=== PATIENT | male | born 1955 | race Caucasian/White ===

== ENCOUNTER 2019-02-22 01:12 | Observation (INO) | payer OTHER ==
[2019-02-22] MEDS ORDERED: NS 1,000 ML IV ONE (01:21)
[2019-02-22 01:41] LABS: PLATELET COUNT 206 10^3/uL (150-400)
--- NOTE | 2019-02-22 01:50 | EDPHY ---
H & P Stated Complaint: mid chest tightness started at 2300 Time Seen by Provider: 02/22/19 01:49 HPI/ROS: HPI CHIEF COMPLAINT: Chest pain. HISTORY OF PRESENT ILLNESS: Patient is a 63-year-old male, he presents emergency room with chest pain. The patient reports to me that he developed this around 11:00 p.m. Night when he was trying to go to sleep. Substernal. He describes it as an achy pain. Does not radiate. He does state that he can' t take a deep breath and has a gives worsening pain. He reports to me on Thursday night he became sick with nausea vomiting vomited multiple times throughout Thursday night and complain of generalized weakness throughout Thursday but did not have chest pain. States he developed chest pain around 11: 00 p.m. Tonight. Also complains of some shortness of breath. He has no history of this he denies a history of DVT or PE or cardiac disease. Nonproductive cough. Also complains of subjective fever. Past Medical History: Medical history significant for hypertension, hyperlipidemia Past Surgical History: Tonsillectomy. Social History: Denies drugs alcohol tobacco. Family History: Hypertension and hyperlipidemia ROS REVIEW OF SYSTEMS: 10 Systems were reviewed and negative with the exception of the elements mentioned in the history of present illness. Exam Constitutional triage nursing summary reviewed, vital signs reviewed, awake/ alert. Eyes normal conjunctivae and sclera, EOMI, PERRLA. HENT normal inspection, atraumatic, moist mucus membranes, no epistaxis, neck supple/ no meningismus, no raccoon eyes. Respiratory clear to auscultation bilaterally, normal breath sounds, no respiratory distress, no wheezing. Cardiovascular rate normal, regular rhythm, no murmur, no edema, distal pulses normal. Gastrointestinal mild RUQ pain on exam, no rebound, no guarding, normal bowel sounds, no distension, no pulsatile mass. Genitourinary no CVA tenderness. Musculoskeletal no midline vertebral tenderness, full range of motion, no calf swelling, no tenderness of extremities, no meningismus, good pulses, neurovascularly intact. Skin pink, warm, & dry, no rash, skin atraumatic. Neurologic awake, alert and oriented x 3, AAOx3, moves all 4 extremities equally, motor intact, sensory intact, CN II-XII intact, normal cerebellar, normal vision, normal speech. Psychiatric normal mood/affect. Heme/Lymph/Immune no lymphadenopathy. Differential Diagnosis: Differential diagnosis includes but is not limited to: ACS, atypical chest pain, pneumothorax, pneumonia, pulmonary embolism, aortic dissection, congestive heart failure, tumor, musculoskeletal pain, esophageal pain, GERD, peptic ulcer disease, pancreatitis Medical Decision Making: Plan for this patient IV establishment IV fluid bolus , nitroglycerin and aspirin, family caseworker, EKG, troponin, D-dimer, chest x- ray rule out acute coronary syndrome Re-evaluation: EKG interpretation by me on record in [employer] system. Impression time of EKG 1:32 a.m., sinus rhythm rate of 71, PVC present, left axis deviation, no acute ST elevation. Ultrasound of the right upper quadrant faxed me by direct Radiology at 2:59 a.m. Shows acute cholecystitis. IV Invanz ordered. 3:07 a.[address] I consult Dr. Woods for admission for acute choly. Patient updated agrees for admission. IV pain medicine ordered. NPO Dr. Woods and has seen evaluated the patient requesting admission to the hospitalist service due to low potassium, elevated BNP. Plan for consult the hospitalist service Chest x-ray one view negative for acute cardiopulmonary disease. Image interpreted by myself. No evidence of failure. Dr. Woods, will consult on patient. Most likely plan for MRCP. Iv invanz ordered. NPO. Pain control/ivfluids. Admit to medicine, Surgery consult. Source: Patient - Personal History Current Tetanus/Diphtheria Vaccine: Yes Current Tetanus Diphtheria and Acellular Pertussis (TDAP): Yes - Medical/Surgical History Hx Asthma: No Hx Chronic Respiratory Disease: No Hx Diabetes: No Hx Cardiac Disease: No Hx Renal Disease: No Hx Cirrhosis: No Hx Alcoholism: No Hx HIV/AIDS: No Hx Splenectomy or Spleen Trauma: No Other PMH: HTN, - Social History Smoking Status: Never smoked Constitutional: Initial Vital Signs Temperature (C) 36.6 C 02/22/19 01:13 Heart Rate 77 02/22/19 01:13 Respiratory Rate 16 02/22/19 01:13 Blood Pressure 132/73 H 02/22/19 01:13 O2 Sat (%) 97 02/22/19 01:13 O2 Delivery Mode Room Air Allergies/Adverse Reactions: No Known Allergies Allergy (Verified 02/22/19 08:58) Home Medications: Medication Instructions Recorded Atorvastatin Calcium [Lipitor 20 20 mg PO DAILY 02/22/19 mg (*)] Lisinopril/Hctz 20/12.5MG 1 ea PO DAILY 02/22/19 [Zestoretic/Prinzide 20/12.5MG (*)] Propranolol HCl [Inderal 20mg (*)] 20 mg PO DAILY 02/22/19 Medical Decision Making - Data Points Laboratory Results: Laboratory Results 02/22/19 01:29 02/22/19 01:29 Medications Given: Acetaminophen (Tylenol) 650 mg PO Q4HRS PRN PRN Reason: Pain, Mild/Fever, Can Take PO Stop: 08/21/19 03:29 Last Admin: 02/22/19 07:29 Dose: 650 mg Ceftriaxone Sodium/Dextrose (Rocephin 1 Gm (Premix)) 50 mls @ 100 mls/hr IV DAILY PANFILO PRN Reason: Protocol Stop: 03/24/19 08:59 Last Admin: 02/22/19 09:15 Dose: 50 mls Metronidazole/Sodium Chloride (Flagyl 500 Mg (Premix)) 100 mls @ 100 mls/hr IV Q8HRS PANFILO PRN Reason: Protocol Stop: 03/24/19 05:59 Last Admin: 02/22/19 14:17 Dose: 100 mls Potassium Chloride 40 meq/ (Sodium Chloride) 1,000 mls @ 100 mls/hr IV CONT PANFILO Stop: 08/21/19 03:59 Last Admin: 02/22/19 18:04 Dose: 1,000 mls Oxycodone HCl (Oxycodone Ir) 5 - 10 mg PO Q3HRS PRN PRN Reason: Pain, Severe Able to Take PO Stop: 03/04/19 03:29 Last Admin: 02/22/19 05:22 Dose: 10 mg Discontinued Medications Aspirin (Aspirin) 324 mg PO EDNOW ONE Stop: 02/22/19 01:55 Last Admin: 02/22/19 02:04 Dose: 324 mg Bupivacaine HCl/Epinephrine Bitart (Bupivacaine/Epi) Confirm Administered Dose 30 ml .ROUTE .STK-MED ONE Stop: 02/22/19 14:18 Last Admin: 02/22/19 15:48 Dose: 25 ml Hydromorphone HCl (Dilaudid) 0.5 mg IVP EDNOW ONE Stop: 02/22/19 03:09 Last Admin: 02/22/19 03:47 Dose: 0.5 mg Sodium Chloride (Ns) 1,000 mls @ 0 mls/hr IV EDNOW ONE; Wide Open PRN Reason: Protocol Stop: 02/22/19 01:22 Last Admin: 02/22/19 01:54 Dose: 1,000 mls Potassium Chloride (Potassium Cl 20 Meq (Premix)) 100 mls @ 50 mls/hr IV EDNOW ONE Stop: 02/22/19 04:03 Last Admin: 02/22/19 02:30 Dose: 100 mls Ertapenem 1 gm/ Sodium (Chloride) 100 mls @ 200 mls/hr IV EDNOW ONE PRN Reason: Protocol Stop: 02/22/19 03:30 Last Admin: 02/22/19 04:06 Dose: 100 mls Potassium Chloride (Potassium Cl 10 Meq (Premix)) 100 mls @ 100 mls/hr IV Q1H PANFILO Stop: 02/22/19 05:29 Last Admin: 02/22/19 03:50 Dose: 100 mls Magnesium Sulfate/Dextrose (Magnesium Sulf 1 Gm (Premix)) 100 mls @ 100 mls/hr IV ONCE ONE Stop: 02/22/19 05:01 Last Admin: 02/22/19 05:13 Dose: 100 mls Lactated Ringer's (Lr) 1,000 mls @ 0 mls/hr IV ONCE ONE PRN Reason: KVO Stop: 02/22/19 14:13 Last Admin: 02/22/19 17:33 Dose: Not Given Iopamidol (Isovue-M 300) Confirm Administered Dose 15 ml .ROUTE .STK-MED ONE Stop: 02/22/19 14:19 Last Admin: 02/22/19 17:33 Dose: Not Given Midazolam HCl (Versed) 2 mg IVP ONCALL ONE Stop: 02/22/19 14:55 Last Admin: 02/22/19 15:03 Dose: 2 mg Nitroglycerin (Nitrostat) 0.4 mg SL EDNOW ONE Stop: 02/22/19 01:55 Last Admin: 02/22/19 02:05 Dose: 1 tab Ondansetron HCl (Zofran) 4 mg IVP EDNOW ONE Stop: 02/22/19 03:09 Last Admin: 02/22/19 07:13 Dose: Not Given Point of Care Test Results: Chemistry 02/22/19 01:33 POC Troponin I 0.03 ng/mL ng/mL (0.00-0.08) Departure - Departure Disposition: [facility] Inpatient Acute Clinical Impression: Acute cholecystitis, Hypokalemia Condition: Serious
[2019-02-22 01:53] LABS: INR 1.11 (0.83-1.16); PROTIME(PATIENT) 13.9 SEC (12.0-15.0)
[2019-02-22] MEDS ORDERED: ASPIRIN 81 MG CHEWABLE TAB PO ONE (01:54)
[2019-02-22] MEDS ORDERED: NITROGLYCERIN 0.4 MG BTL SL ONE (01:54)
[2019-02-22] MEDS ORDERED: POTASSIUM Cl (KCl) 100 ML IV ONE (02:04)
[2019-02-22] MEDS ORDERED: POTASSIUM Cl (KCl) 10 MEQ/100 ML BAG IV ONE (02:18)
[2019-02-22] MEDS: POTASSIUM Cl (KCl) 100 ML IV SCH ×2 (02:45→03:50)
[2019-02-22] MEDS ORDERED: ERTAPENEM 1 GM in NS 100 ML IV ONE (03:01)
[2019-02-22] MEDS ORDERED: ONDANSETRON 4 MG/2 ML VIAL IVP ONE (03:08)
[2019-02-22] MEDS ORDERED: HYDROmorphONE/DILAUDID 2 MG/ML INJ IVP ONE (03:08)
[2019-02-22] MEDS ORDERED: PROMETHAZINE HCL 25 MG/ML INJ IVP PRN ×2 (03:30→16:02)
[2019-02-22] MEDS ORDERED: ONDANSETRON DISINTEGRATING 4 MG TAB PO PRN (03:30)
[2019-02-22] MEDS ORDERED: oxyCODONE IR 5 MG TAB PO PRN (03:30)
[2019-02-22] MEDS ORDERED: ONDANSETRON 4 MG/2 ML VIAL IVP PRN ×2 (03:30→16:02)
[2019-02-22] MEDS ORDERED: ACETAMINOPHEN 325 MG TAB PO PRN (03:30)
[2019-02-22] MEDS ORDERED: HYDROmorphONE/DILAUDID 1 MG/ML INJ IVP PRN (03:46)
--- NOTE | 2019-02-22 03:52 | PDGENHP ---
History and Physical - Chief Complaint RUQ pain - History of Present Illness 63 yo M w/ hx of HTN presents with RUQ pain. The patient has been symptomatic for the last 3 days. He first developed vomiting and subjective fever. Then he developed progressive RUQ pain over the last 3 days so he came to the ED for evaluation. In the ED an ultrasound is consistent with acute cholecystitis. It also demonstrates dilated CBD. His K is low, BNP elevated, and ECG w/ numerous PVCs. At the time of my evaluation he is only complaining of RUQ pain. He is fairly well appearing. He denies prior cardiac history aside from HTN. I discussed the case with emergency physician Dr. Boykin and general surgery Dr. Woods; I reviewed his records and summarized above. History Information - Allergies/Home Medication List Allergies/Adverse Reactions: No Known Allergies Allergy (Unverified 02/22/19 01:16) Home Medications: Bp Medication 02/22/19 [Last Taken Unknown] Lipitor 02/22/19 [Last Taken Unknown] Lisinopril/Hydrochlorothiazide 02/22/19 [Last Taken Unknown] I have personally reviewed and updated: family history, medical history - Past Medical History hypertension - Surgical History Additional surgical history: Knee surgery - Family History Positive for: diabetes type II Additional family history: MS - Social History Smoking Status: Never smoked Review of Systems Review of Systems: ROS: 10pt was reviewed & negative except for what was stated in HPI & below Physical Exam Physical Exam: Temp Pulse Resp BP Pulse Ox 36.6 C 77 16 132/73 H 97 02/22/19 01:13 02/22/19 01:13 02/22/19 01:13 02/22/19 01:13 02/22/19 01:13 Constitutional: appears nourished, uncomfortable Eyes: PERRL, EOMI Ears, Nose, Mouth, Throat: moist mucous membranes, no oral mucosal ulcers Cardiovascular: regular rate and rhythym, no murmur, rub, or gallop, other ( Distant heart sounds) Respiratory: no respiratory distress, clear to auscultation Gastrointestinal: normoactive bowel sounds, tenderness (RUQ), peters's sign Skin: warm, normal color Musculoskeletal: full muscle strength, no muscle tenderness Neurologic: AAOx3, CN II-XII Intact Psychiatric: interacting appropriately, not anxious Lab Data & Imaging Review 02/22/19 01:29 02/22/19 01: WBC 15.54 10^3/uL (3.80-9.50) H 02/22/19 01: RBC 5.27 10^6/uL (4.40-6.38) 02/22/19 01:29 Hgb 16.2 g/dL (13.7-17.5) 02/22/19 01:29 Hct 45.1 % (40.0-51.0) 02/22/19 01: MCV 85.6 fL (81.5-99.8) 02/22/19 01: MCH 30.7 pg (27.9-34.1) 02/22/19 01: MCHC 35.9 g/dL (32.4-36.7) 02/22/19 01: RDW 12.6 % (11.5-15.2) 02/22/19 01: Plt Count 206 10^3/uL (150-400) 02/22/19 01: MPV 8.7 fL (8.7-11.7) 02/22/19 01: Neut % (Auto) 82.8 % (39.3-74.2) H 02/22/19 01: Lymph % (Auto) 7.7 % (15.0-45.0) L 02/22/19 01: [place] % (Auto) 8.6 % (4.5-13.0) 02/22/19 01: Eos % (Auto) 0.1 % (0.6-7.6) L 02/22/19 01: Baso % (Auto) 0.4 % (0.3-1.7) 02/22/19 01: Nucleat RBC Rel Count 0.0 % (0.0-0.2) 02/22/19 01: Absolute Neuts (auto) 12.88 10^3/uL (1.70-6.50) H 02/22/19 01:29 Absolute Lymphs (auto) 1.19 10^3/uL (1.00-3.00) 02/22/19 01:29 Absolute Monos (auto) 1.33 10^3/uL (0.30-0.80) H 02/22/19 01:29 Absolute Eos (auto) 0.02 10^3/uL (0.03-0.40) L 02/22/19 01:29 Absolute Basos (auto) 0.06 10^3/uL (0.02-0.10) 02/22/19 01:29 Absolute Nucleated RBC 0.00 10^3/uL (0-0.01) 02/22/19 01: Immature Gran % 0.4 % (0.0-1.1) 02/22/19 01: Immature Gran # 0.06 10^3/uL (0.00-0.10) 02/22/19 01: PT 13.9 SEC (12.0-15.0) 02/22/19 01:29 INR 1.11 (0.83-1.16) 02/22/19 01:29 APTT 32.4 SEC (23.0-38.0) 02/22/19 01:29 D-Dimer 5.33 ug/mLFEU (0.00-0.50) H 02/22/19 01:29 Sodium 136 mEq/L (135-145) 02/22/19 01:29 Potassium 2.6 mEq/L (3.5-5.2) L* 02/22/19 01:29 Chloride 97 mEq/L (97-110) 02/22/19 01:29 Carbon Dioxide 26 mEq/l (22-31) 02/22/19 01:29 Anion Gap 13 mEq/L (6-14) 02/22/19 01:29 BUN 17 mg/dL (7-23) 02/22/19 01:29 Creatinine 1.1 mg/dL (0.7-1.3) 02/22/19 01:29 Estimated GFR > 60 02/22/19 01:29 Glucose 139 mg/dL (70-100) H 02/22/19 01:29 Calcium 9.1 mg/dL (8.5-10.4) 02/22/19 01:29 Magnesium 1.8 mg/dL (1.6-2.3) 02/22/19 01:29 Total Bilirubin 4.2 mg/dL (0.1-1.4) H 02/22/19 01:29 Conjugated Bilirubin 2.2 mg/dL (0.0-0.5) H 02/22/19 01:29 Unconjugated Bilirubin 2.0 mg/dL (0.0-1.1) H 02/22/19 01:29 AST 172 IU/L (17-59) H 02/22/19 01:29 ALT 102 IU/L (21-72) H 02/22/19 01:29 Alkaline Phosphatase 194 IU/L (38-126) H 02/22/19 01:29 POC Troponin I 0.03 ng/mL (0.00-0.08) 02/22/19 01:33 NT-Pro-B Natriuret Pep 1680 pg/mL (0-125) H 02/22/19 01:29 Total Protein 6.4 g/dL (6.3-8.2) 02/22/19 01:29 Albumin 3.7 g/dL (3.5-5.0) 02/22/19 01:29 Lipase 73 IU/L (23-300) 02/22/19 01:29 Nasal Influenza A PCR NEGATIVE FOR FLU A (NEGATIVE) 02/22/19 02:00 Nasal Influenza B PCR NEGATIVE FOR FLU B (NEGATIVE) 02/22/19 02:00 Ethyl Alcohol < 10 mg/dL (0-10) 02/22/19 01:29 Visualized and Interpreted EKG results: Yes EKG Interpretation: Positive for: normal sinsus rhythm, other (PVCs) Assessment & Plan Assessment: 63 yo M w/ HTN presents with acute cholecystitis. Plan: 1. Acute cholecystitis - Ultrasound notable for GB wall thickening and positive Peters's sign. WBC 15 but no evidence of sepsis physiology at this time. - CTX/Metronidazole for empiric intraabdominal coverage - Blood cultures ordered - Discussed case with general surgery, they will follow - Maintain NPO - Pain control 2. Abnormal LFTs - Elevated bilirubin and transaminases consistent with both obstruction and inflammation. RUQ U/S demonstrated dilated CBD at 9 mm. - MRCP ordered for further evaluation - Monitor LFTs - Infectious management as above 3. Elevated BNP - No prior hx of CHF; CXR does demonstrate some vascular congestion and ECG w/ multiple PVCs. - TTE ordered for further evaluation 4. Hypokalemia - Possibly due to vomiting and poor PO intake. - Replete PRN - mIVF w/ K ordered - Monitor BMP - Monitor on telemetry 5. HTN - Hold home meds in setting of acute infection, restart as indicated. Diet - NPO, mIVF w/ K Code - Full Ppx - SCDs Dispo - Admit under observation status
[2019-02-22] MEDS ORDERED: MAGNESIUM SULF 1 GM/DEXTROSE 100 ML IV ONE (04:02)
[2019-02-22] MEDS: POTASSIUM Cl (KCl) 40 MEQ in NS 1,000 ML IV SCH ×2 (05:05→18:04)
--- NOTE | 2019-02-22 07:45 | CPEKG ---
Test Reason : OPEN Blood Pressure : / mmHG Vent. Rate : 071 BPM Atrial Rate : 077 BPM P-R Int : 187 ms QRS Dur : 108 ms QT Int : 394 ms P-R-T Axes : 060 -37 027 degrees QTc Int : 429 ms Sinus rhythm Multiform ventricular premature complexes Left axis deviation Abnormal R-wave progression, early transition Confirmed by Buster Heck ([id number]) on 02/22/2019 7:43:56 AM Referred By: PHYSICIAN ED Confirmed By:Buster Heck
--- NOTE | 2019-02-22 08:28 | SOAPPROG ---
SOAP Progress Note Assessment/Plan: Assessment: 63-year-old male with likely acute cholecystitis, question choledocholithiasis. Currently getting electrolytes repleted Pain is much better controlled MRCP plan for today, discussed that if he does have a common bile duct stone he will acquire [id number]. Cholecystectomy this admission, either later today versus tomorrow pending MRCP results. Plan: 02/22/19 08:27 Subjective: pain much better controlled Objective: Vital Signs Temp Pulse Resp BP Pulse Ox 36.7 C 72 18 99/59 L 93 02/22/19 05:03 02/22/19 08:00 02/22/19 08:00 02/22/19 08:00 02/22/19 08:00 Laboratory Results 02/22/19 07:42 02/21/19 02/22/19 02/23/19 05:59 05:59 05:59 Intake Total 1000 Balance 1000 PT 13.9 SEC (12.0-15.0) 02/22/19 01:29 INR 1.11 (0.83-1.16) 02/22/19 01:29 ICD10 Worksheet Patient Problems: Problems Problem Status Onset Acute cholecystitis Acute Hypokalemia Acute
--- NOTE | 2019-02-22 11:07 | GCON ---
[f rep st] CONSULTATION DATE OF CONSULTATION: 02/22/2019 CHIEF COMPLAINT: Acute calculous cholecystitis. HISTORY OF PRESENT ILLNESS: The patient is a 63-year-old man who began feeling ill 3 days prior to a dmission. He had several episodes of emesis, followed by dry heaving, and in general, felt unwell ov er the weekend. He had intermittent upper abdominal/low chest pain throughout the weekend. Nothing made it better or worse. As he went down to bed tonight, due to the pain, he decided to present to [facility] emergency room. PAST MEDICAL HISTORY: Hypertension. PAST SURGICAL HISTORY: Tonsillectomy, knee surgery. SOCIAL HISTORY: He works in the [employer] at the [employer]. He does not use [employer]. FAMILY HISTORY: Includes diabetes, coronary artery disease, hyperlipidemia, Alzheimer's, and hyperte nsion. REVIEW OF SYSTEMS: Significant for malaise, nausea, vomiting, chest pain, abdominal pain. Negative for sara-colored stools, dark-colored urine, jaundice, pruritis, dysuria, hematuria, headaches. Othe r 10-point review of systems is negative. PHYSICAL EXAMINATION: VITAL SIGNS: 36.6, 77, 132/73, 16, 97%. GENERAL: Pleasant, well-nourished, w ell-groomed man lying on gurney, appears slightly uncomfortable. HEENT: Normocephalic. No gross he aring deficits. Mucous membranes moist. Pupils equal and round. No scleral icterus. LUNGS: Clear to auscultation bilaterally. No increased work of breathing. CARDIAC: Regular rate. No periphera l edema. ABDOMEN: Bowel sounds present. He is markedly tender in the right upper quadrant. SKIN: Warm and dry. No jaundice. MUSCULOSKELETAL: Normal nails. NEURO: Grossly intact. LABORATORY WORK: I personally reviewed the results. His CBC is notable for a white count of 15.54. Chemistry panel is notable for potassium of 2.6. His LFTs, he has a total bilirubin of 4.2, AST 172 , ALT 102, alkaline phosphatase 194. His lipase is 73, and his BNP is 1680. He is negative for flu. IMPRESSION AND PLAN: The patient is a 63-year-old man with recent likely viral illness, hypokalemia, and possible acute calculous cholecystitis. I am unsure if he passed a stone or if he has a stone o bstructing. We will recheck liver function tests. He will likely need a magnetic resonance cholangi opancreatography, possible endoscopic retrograde cholangiopancreatography, and cholecystectomy. I do not think that this should be done tonight as his potassium is 2.6, is likely explained by his nause a and vomiting. However, this does need to be corrected prior to surgery. He also does not have a h istory of heart disease. BNP is 1680. His troponin is negative. Chest x-ray does not show acute pu lmonary process. I have asked the hospitalist to admit to make sure that he is optimized prior to keon bird needing surgery in the next day or 2. /[id number]/MODL
[2019-02-22] MEDS ORDERED: LR 1,000 ML IV ONE (14:12)
[2019-02-22] MEDS ORDERED: BUPIVACAINE/EPI 0.25% 30 ML SDV ONE (14:17)
[2019-02-22] MEDS ORDERED: IOPAMIDOL (ISOVUE-M 300) 15 ML VIAL ONE (14:18)
--- NOTE | 2019-02-22 14:39 | PDHPUP ---
History & Physical Update H&P update statement: This history and physical update is based on an assessment of the patient which was completed after admission or registration (within 24 hours), but prior to the surgery/procedure. H&P update: H&P reviewed & patient examined, no change in patient's condition since H&P completed
[2019-02-22] MEDS ORDERED: MIDAZOLAM 2 MG/2 ML VIAL ONE (14:54)
[2019-02-22] MEDS ORDERED: MIDAZOLAM 2 MG/2 ML VIAL IVP ONE (14:54)
--- NOTE | 2019-02-22 14:59 | PDANEPAE ---
ANE Past Medical History - Cardiovascular History Hx Hypertension: Yes Hx Arrhythmias: No Hx Chest Pain: No Hx Coronary Artery / Peripheral Vascular Disease: No Hx CHF / Valvular Disease: No - Pulmonary History Hx Oxygen in Use at Home: No Hx Sleep Apnea: No Sleep Apnea Screening Result - Last Documented: Positive - Endocrine History Hx Diabetes: No - Chronic Pain History Chronic Pain: No ANE Review of Systems Review of Systems: ANE Patient History - Allergies Allergies/Adverse Reactions: No Known Allergies Allergy (Verified 02/22/19 08:58) - Home Medications Home Medications: Atorvastatin Calcium [Lipitor 20 mg (*)] 20 mg PO DAILY 02/22/19 [Last Taken ] Lisinopril/Hctz 20/12.5MG [Zestoretic/Prinzide 20/12.5MG (*)] 1 ea PO DAILY [Last Taken 02/21/19] Propranolol HCl [Inderal 20mg (*)] 20 mg PO DAILY 02/22/19 [Last Taken 02/21/19] - NPO status NPO Since - Liquids (Date): 02/21/19 NPO Since - Liquids (Time): 23:00 NPO Since - Solids (Date): 02/21/19 NPO Since - Solids (Time): 14:00 - Smoking Hx Smoking Status: Never smoked MICHELET Labs/Vital Signs - Labs Result Diagrams: 02/22/19 01:29 02/22/19 07:42 - Vital Signs Blood Pressure: 109/65 Heart Rate: 66 Respiratory Rate: 18 O2 Sat (%): 98 Height: 175.26 cm Weight: 90.72 kg ANE Physical Exam - Airway Neck exam: FROM Mallampati Score: Class 2 Mouth exam: normal dental/mouth exam - ASA Status ASA Status: II ANE Anesthesia Plan Anesthesia Plan: general endotracheal anesthesia
[2019-02-22] MEDS ORDERED: fentaNYL 100 MCG/2 ML INJ ONE ×2 (15:02→16:17)
[2019-02-22] MEDS ORDERED: ROCURONIUM 50 MG/5 ML VIAL ONE (15:03)
[2019-02-22] MEDS ORDERED: PROPOFOL 200 MG/20 ML VIAL ONE (15:03)
[2019-02-22] MEDS ORDERED: PHENYLEPHRINE HCL 100 MCG/ML SYR ONE (15:17)
[2019-02-22] MEDS ORDERED: CALCIUM CHLORIDE 1 GM/10 ML INJ ONE (15:28)
[2019-02-22] MEDS ORDERED: ONDANSETRON 4 MG/2 ML VIAL ONE (15:29)
[2019-02-22] MEDS ORDERED: DEXAMETHASONE 4 MG/ML VIAL ONE (15:29)
[2019-02-22] MEDS ORDERED: KETOROLAC 30 MG/1 ML SDV ONE (15:29)
--- NOTE | 2019-02-22 15:37 | ASMTCMCOM ---
CM Note CM Note Notes: 02/22/2019 Case Management Note Reviewed chart. Pt admitted for HTN and RUQ pain with suspected cholecystitis. Cholecystectomy planned for this admission. There are no case management d/c needs identified d/t pt age, employment status and independence with ADL's prior to admission. There are no therapy evals ordered today. Csae Management d/c poc: anticipating independent with follow up as directed. Case Management to follow. Date Signed: 02/22/2019 03:37 PM Electronically Signed By:Roma Cameron RN
[2019-02-22] MEDS ORDERED: ALBUTEROL 3 ML DEYVIAL IH PRN (16:02)
[2019-02-22] MEDS ORDERED: MEPERIDINE 25 MG/0.5 ML AMP IVP PRN (16:02)
[2019-02-22] MEDS ORDERED: HYDROmorphONE/DILAUDID 2 MG/ML INJ IVP PRN (16:02)
[2019-02-22] MEDS ORDERED: METOCLOPRAMIDE 10 MG/2 ML VIAL IVP PRN (16:02)
[2019-02-22] MEDS ORDERED: DIAZEPAM 5 MG/ML 1 ML SYR IVP PRN (16:02)
[2019-02-22] MEDS ORDERED: NALOXONE HCL 0.4 MG/ML INJ IVP PRN (16:02)
[2019-02-22] MEDS ORDERED: fentaNYL 100 MCG/2 ML INJ IVP PRN (16:02)
[2019-02-22] MEDS ORDERED: LR 500 ML IV PRN (16:02)
[2019-02-22] MEDS ORDERED: SUGAMMADEX SODIUM 200 MG/2 ML VIAL IVP ONE (16:08)
--- NOTE | 2019-02-22 16:24 | POSTOPPROG ---
Post Op Note Date of Operation: 02/22/19 Surgeon: Thomas Costa Commissary Agent: RAY Sood Anesthesiologist: Mable Anesthesia: GET(General Endotracheal) Pre-op Diagnosis: cholecystitis Post-op Diagnosis: same Procedure: Laparoscopic cholecystectomy Findings: gangrenous GB wall Inf/Abcess present in the surg proc area at time of surgery?: Yes Depth: Organ Space EBL: 50-100 Total fluids administered: 1000cc Washout Specimen(s): GB
--- NOTE | 2019-02-22 17:00 | HOSPPROG ---
Hospitalist Progress Note Assessment/Plan: # acute cholecystitis - to OR today with Dr Costa # elevated LFTs - no choledocholithiasis on MRCP # elevated BNP - echo pending # hypoK - better, continue to replete # htn - restart home meds when appropriate Subjective: still with abd pain Objective: Vital Signs Temp Pulse Resp BP Pulse Ox 36.1 C 73 22 H 111/63 94 02/22/19 16:35 02/22/19 16:35 02/22/19 16:46 02/22/19 16:46 02/22/19 16:46 Laboratory Results 02/22/19 07:42 02/21/19 02/22/19 02/23/19 05:59 05:59 05:59 Intake Total 1000 330 Output Total 10 Balance 1000 320 PT 13.9 SEC (12.0-15.0) 02/22/19 01:29 INR 1.11 (0.83-1.16) 02/22/19 01:29 - Physical Exam Gastrointestinal: other (RUQ TTP), No guarding, No rebound ICD10 Worksheet Patient Problems: Problems Problem Status Onset Acute cholecystitis Acute Hypokalemia Acute
--- NOTE | 2019-02-22 22:25 | GOP ---
[f rep st] OPERATIVE REPORT DATE OF OPERATION: 02/22/2019 SURGEON: Thomas Costa MD SUBSCRIPTION AGENT: Yolanda Sood PA-C. ANESTHESIA: General endotracheal provided by Dr. Kalyn Akins. PREOPERATIVE DIAGNOSIS: Cholecystitis. POSTOPERATIVE DIAGNOSIS: Gangrenous Cholecystitis. PROCEDURE PERFORMED: Laparoscopic cholecystectomy. FINDINGS: The gallbladder wall was gangrenous. I had to drain it successfully retract it. Very dense fatty inflammation at the infundibulum cystic duct was successfully divided using an Endo-JACKIE staple load. SPECIMENS: Gallbladder. ESTIMATED BLOOD LOSS: 50 cc. DESCRIPTION OF PROCEDURE: The patient was greeted in the preoperative suite. Once again, risks, benefits, and alternatives were discussed. Consent was signed. He was then brought back to the operative suite, placed on the OR table in supine position. After all anesthesia machines including SCDs were on and functioning, World Health Organization time-out was performed. After successful induction of general anesthesia, the patient's abdomen was prepped and draped in typical sterile fashion. I commenced the procedure by making an infraumbilical cutdown through which the Veress needle was passed. I achieved pneumoperitoneum to 15 mmHg CO2, which was well tolerated by the patient. Through this, I then inserted a 12 mm Visiport. I then inserted 3 additional 5 mm trocars, 1 in the subxiphoid, 2 in the right upper quadrant, all under direct visualization. The gallbladder had dense omental adhesions to it which were initially taken down bluntly. I was unable to initially retract the gallbladder over the liver edge. I successfully drained it laparoscopically and sent a portion of this off for culture. After successfully retracting it down, I began my dissection at the infundibulum. There was a significant amount of fatty inflammation here and I was unable to identify any clear anatomy. I turned my attention toward the dome down approach and successfully started by taking the base of the gallbladder off the liver bed using the Harmonic Scalpel. I took this all the way down to the infundibulum and successfully dissected 2 and only 2 structures out. I successfully took the cystic artery with the Harmonic Scalpel. I identified the cystic duct and the common bile duct adjacent to it. The cystic duct was quite inflamed and shortened. I was unable to get a clip fur remodeler across it successfully. I then upsized my subxiphoid port, through which I placed a stapler and successfully amputated the specimen by taking the cystic duct with an Endo-JACKIE blue load staple load. It was placed in an EndoCatch bag and removed. I then inspected both the cystic artery and the duct. Nitza were intact and hemostatic. I irrigated the right upper quadrant with a liter of sterile saline, noting clear effluent in the suction canister. Hemostasis was good. I infiltrated local anesthesia into my port sites which were then removed. Both my subxiphoid and infraumbilical site were closed with a 0 Vicryl stitch noting excellent fascial reapproximation. Skin was closed with Monocryl. Dermabond was placed. The patient was then extubated in the operative suite and taken to the PACU in satisfactory condition. DRAINS: None. COUNTS: All counts were reported as correct x2. /[id number]/MODL MTDD
[2019-02-23] MEDS: POTASSIUM Cl (KCl) 40 MEQ in NS 1,000 ML IV SCH (06:07)
--- NOTE | 2019-02-23 07:50 | POSTANESTH ---
Post Anesthetic Evaluation Cardiovascular Status: Normal, Stable Respiratory Status: Normal, Stable Level of Consciousness/Mental Status: Can Participate in Eval Pain Control: Adequate, Prn Tx Ordered Nausea/Vomiting Control: Adequate, Prn Tx Ordered Complications Possibly Related to Anesthesia: None Noted
[2019-02-23] MEDS ORDERED: PROPRANOLOL HCL 20 MG TAB PO SCH (11:15)
--- NOTE | 2019-02-23 11:17 | HOSPPROG ---
Hospitalist Progress Note Assessment/Plan: 63 yo M w/ hx of HTN presents with RUQ pain. First encounter, chart reviewed. # acute cholecystitis -POD #[address] Costa -s/p laparoscopic -dc on Augmentin x 5 days # elevated LFTs - no choledocholithiasis on MRCP -will have these rechecked in OP setting to be sure they trend down # elevated BNP - echo pending # hypoK - better, continue to replete # htn - will hold diuretic for now #plan: dc after eval of echocardiogram Subjective: Jose Cruz feels fine, eating and drinking well. Objective: Vital Signs Temp Pulse Resp BP Pulse Ox 36.5 C 70 19 119/76 94 02/23/19 07:57 02/23/19 07:57 02/23/19 07:57 02/23/19 07:57 02/23/19 07:57 Microbiology 02/22/19 15:35 Gram Stain - Final Bile - Aspirate Laboratory Results 02/22/19 17:01 02/22/19 02/23/19 02/24/19 05:59 05:59 05:59 Intake Total 1000 1760 500 Output Total 1060 300 Balance 1000 700 200 PT 13.9 SEC (12.0-15.0) 02/22/19 01:29 INR 1.11 (0.83-1.16) 02/22/19 01:29 - Physical Exam Constitutional: no apparent distress, appears nourished, not in pain Eyes: PERRL Ears, Nose, Mouth, Throat: hearing normal Cardiovascular: regular rate and rhythym Respiratory: no respiratory distress Gastrointestinal: normoactive bowel sounds, distension (slight) Skin: warm Musculoskeletal: full muscle strength Neurologic: AAOx3 Psychiatric: interacting appropriately, not anxious ICD10 Worksheet Patient Problems: Problems Problem Status Onset Acute cholecystitis Acute Hypokalemia Acute
[2019-02-23 11:49] VITALS: BP 111/79
--- NOTE | 2019-02-23 13:51 | ECHO ---
[email or web address] [address] [address] Main: [phone] Echocardiography Examination Transthoracic Name: GUNJAN GILLETTE MR#: [id number] Study Date: 02/23/2019 Study Time: 11:52 AM Date of : 1955 Age: 63 year(s) Height: 175.3 cm (69 in.) Weight: 92.99 kg (205 lb.) BSA: 2.09 m2 Gender: Male Examination: Echo Contrast: Image Quality: Adequate Rhythm: Heart Rate: 72 bpm BP: 111 mmHg/79 mmHg Indication: elevated bnp, PVC's Procedure Staff Referring Physician: [employer] Agent: Lisa Angeles RDCS Reading Physician: Prince Banuelos MD Requesting Provider: Indication: elevated bnp, PVC's Measurements Chambers AV/MV Label Value Normal Value Label Value Normal Value EF lower range (%) 60 % AR PHT 0.56 s EF upper range (%) 65 % AR PHT 564 ms IVSd, 2D 1.1 cm (0.6cm - 1.1cm) AR Vena contracta 0.4 cm LVDd, 2D 4.6 cm (4.2cm - 5.9cm) AR Vmax 3.31 m/s LVDs, 2D 2.7 cm (2.1cm - 4cm) AV PGmax 6 mmHg LVEF, 2D 72 % (54% - 74%) AV Vmax 1.2 m/s LVEF, BP 62 % (55% - 70%) NORRIS (continuity eq. 3 cm2 LVOT PGmax 4 mmHg Vmax) LVOT Vmax 0.94 m/s (0.7m/s - 1.1m/s) MV A Vmax 0.6 m/s LVOTd 2.2 cm (1.9cm - 2.1cm) MV DT 169 ms LVPWd, 2D 1 cm (0.6cm - 1cm) MV E' lateral 0.08 m/s RVDd, 2D 3.7 cm (1.9cm - 3.8cm) MV E' mean 0.07 m/s TAPSE 2.7 cm MV E' septal 0.06 m/s LA Volume, BP 56 ml (18ml - 58ml) MV E Vmax 0.79 m/s LADs, 2D 3.8 cm (3cm - 4cm) MV E/A 1.32 LAESV index, BP 26.8 ml/m2 MV E/E' lateral 10.5 RA Area 16.1 cm2 MV E/E' mean 11.29 Additional Vessels MV E/E' septal 12.3 (0.45 - 1.25) Label Value Normal Value TV/PV AoAsc 3.2 cm Label Value Normal Value Patient: GUNJAN GILLETTE Study Date: 02/23/2019 Page 1 of 2 11:52 AM AoRoot, 2D 3.6 cm (1.4cm - 2.6cm) PV PGmax 1 mmHg PV Vmax, Caliper 0.55 m/s (0.6m/s - 0.9m/s) Conclusions Overall Conclusions: No pericardial effusion. Preserved left ventricular systolic function. mild aortic regurgitation. Findings Left Ventricle: Left ventricle is normal in size. Normal global systolic left ventricular function. EF evaluated by EF (biplane Holman's). The ejection fraction, measured by Simpsons method, is 62 %. EF range is estimated at 60 % - 65 %. There is mild concentric left ventricular hypertrophy. There are no regional wall motion abnormalities. Left ventricular diastolic function parameters are normal. Right Ventricle: Normal size right ventricle. Right ventricular wall thickness is normal. Right ventricular systolic function is normal. Left Atrium: The left atrium is normal in size. IAS: Normal appearing atrial septum. Right Atrium: The right atrium is borderline dilated. Mitral Valve: Normal . Mild mitral regurgitation. No mitral valve stenosis. Aortic Valve: Aortic leaflets exhibit normal cuspal separation. Mild aortic regurgitation is present. There is no aortic stenosis. Tricuspid Valve: Tricuspid valve leaflets are normal in appearance and function. Trivial tricuspid regurgitation. No tricuspid valve stenosis. Pulmonary artery pressure cannot be assessed due to inadequate TR signal. Pulmonic Valve: Pulmonic leaflets exhibit normal cuspal separation. No pulmonic valve regurgitation is evident. Aorta: The aorta is normal. The aortic root size in 2D measures 3.6 cm. The ascending aorta measures 3.2 cm. Aorta Measurements AoRoot, 2D is 3.6 cm. IVC: The inferior vena cava is normal in size and course. Pericardium: No pericardial effusion. No pleural effusion present. Exam Details Procedure Ordered: Echo Procedure Status: Routine study Image Quality: Adequate Facility Location: Cardiac Echo 1 (No Signature Object) Patient: GUNJAN GILLETTE Study Date: 02/23/2019 Page 2 of 2 11:52 AM [id number]
--- NOTE | 2019-02-23 15:17 | GDS ---
[f rep st] DISCHARGE SUMMARY DISCHARGE DIAGNOSES: 1. Acute cholecystitis. 2. Elevated liver function tests. 3. Elevated brain natriuretic peptide. 4. Hypokalemia. 5. Hypertension. CONSULTATION: Kellee Woods MD. HOSPITAL COURSE: Briefly, the patient is a 63-year-old gentleman who presented to the emergency room with right upper quadrant pain. He had pain for approximately 3 days and developed vomiting and fev er. In the emergency room, he had an ultrasound which showed acute cholecystitis. It also noted he had a dilated common bile duct. Subsequently, he had an MRI of the abdomen performed which showed ga llbladder wall thickening and pericholecystic stranding suggesting acute cholecystitis. He had mild biliary dilatation. No visible choledocholithiasis. He was treated with antibiotics. He had surger y on February [address] Costa. He has done very well with surgery. Of note, he had an elevated BNP. An echocardiogram was performed for further evaluation. This noted that he had an EF of 62%. He has mild concentric left ventricular hypertrophy without any regional wall abnormalities. His rig ht atrium is borderline dilated. Recommendation is for him to follow up with his PCP and recommended that he get a sleep study. HOSPITAL COURSE: 1. Acute cholecystitis, resolved. His gallbladder was noted to be gangrenous. He is feeling quite well today. He is eating and drinking. He has not required any pain medications. He will follow up with Dr. Costa next week. We will discharge him on Augmentin for 5 more days. 2. Elevated liver function test. He has no choledocholithiasis on MRCP. We have these rechecked in 1 week. Also recommending he hold his statin until he gets further evaluation. 3. Elevated BNP, suspect this could have been inflammation secondary from the cholecystitis. Furthe r followup with Dr. Akilah MD. 4. Hypokalemia, stable. 5. Hypertension. Holding his blood pressure medications until he follows up with his PCP. Blood pr essures have been stable without them. DISCHARGE CONDITION: Stable. Blood pressure is 111/79, heart rate is 61, respiratory rate 21, O2 sa turation on room air 91%, temperature is 36.4 Celsius. MEDICATIONS AT DISCHARGE: Please see the MAR. DISCHARGE INSTRUCTIONS: 1. No heavy lifting greater than 10 pounds for [address] Costa in 2 weeks. 3. To start the Augmentin tonight. 4. If he develops diarrhea greater than 3 liquid stools, to follow up with his PCP immediately. 5. If he develops fever, chills, chest pain, or shortness of breath, return to the ER. 6. Recommend he get an outpatient sleep study. 7. Repeat liver enzymes next week with Dr. Isbell. 8. Hold his statin, and lisinopril, and hydrochlorothiazide until he follows up with Dr. Isbell next week. /[id number]/MODL
== END 2019-02-23 15:35 | disposition home or self-care (01) ==
LOC: F3E 04:45
PROVIDERS: ADMIT Student in an Organized Health Care Education/Training Program; ATTEND Internal Medicine
PROC: 0FT44ZZ Resection of Gallbladder, Percutaneous Endoscopic Approach (ICD-10-PCS; principal; 2019-02-22 15:00)
DX: K80.00 Calculus of gallbladder with acute cholecystitis without obstruction (principal); E86.0 Dehydration; E87.6 Hypokalemia; I10 Essential (primary) hypertension
CPT/HCPCS: 47562; 71045; 74181; 76705; 93005; 93306; G0378; 84484-ER; 96365; 96366; G0480; J0696; J1100; J1170; J1335; J1885; J2250; J2370; J2405; J2704; J3010; J3475; J3480; Q9967

== ENCOUNTER 2019-02-24 11:43 | Observation (INO) | payer OTHER ==
--- NOTE | 2019-02-24 12:01 | EDPHY ---
H & P Stated Complaint: Post-op fever Time Seen by Provider: 02/24/19 11:56 HPI/ROS: HPI: This is a 63-year-old male who presents with Chief Complaint: Fever Location: Body Quality: Fever Duration: 30 min prior to arrival Signs and Symptoms: + fever, no nausea, no vomiting, no diarrhea, no urinary symptoms, no chest pain, no shortness of breath, no wheezing, + dry cough, no sore throat, no neck stiffness, no joint pain, no swollen glands, no ear pain, no rash, + runny nose, + nasal congestion Timing: Acute, constant Severity: Mild Context: Patient presents with a temperature orally taking at home 30 min prior to arrival of 102 F. He did not take any antipyretics. Patient was discharged from the hospital yesterday afternoon and started taking Augmentin yesterday evening and another dose this morning. Patient reports that after surgery he had a sore throat and then yesterday developed nonproductive cough and runny nose with nasal congestion. He thought maybe he just developed a cold while in the hospital. Has not received influenza vaccine. The patient denies any burning with urination but does have some mild low back pain and urine is dark in color. Patient has a history of laparoscopic cholecystectomy status post acute cholecystitis noted to be gangrenous, performed on February 22, [address] Costa. Upon discharge he was noted to have elevated liver function tests but no choledocholithiasis on MRCP. He is currently holding his statin. Patient also had an elevated BNP level thought to be inflammatory secondary to cholecystitis. He denies any orthopnea, paroxysmal nocturnal dyspnea, lower extremity edema. Patient denies any actual abdominal pain, nausea, vomiting. He is having bowel movements. Did not have influenza vaccine this year. Modifying Factors: None Comment: ROS: A comprehensive 10 system review of systems is otherwise negative aside from elements mentioned in the history of present illness. MEDICAL/SURGICAL/SOCIAL HISTORY: Medical history: Hypertension. Surgical history: Laparoscopic cholecystectomy Social history: Nonsmoker. Family history noncontributory. CONSTITUTIONAL: Well-developed, well-nourished, elderly white male, nontoxic in appearance, awake and alert, no obvious distress HEENT: Atraumatic and normocephalic, PERRL, EOMI. Nares patent; no rhinorrhea; no nasal mucosal edema. Tympanic membranes clear. Oropharynx clear, no exudate and moist pink mucosa. Airway patent. No lymphadenopathy. No meningismus. No JVD. Cardiovascular: Normal S1/S2, regular rate, regular rhythm, without murmur rub or gallop. PULMONARY/CHEST: Symmetrical and nontender. Clear to auscultation bilaterally with diminished bases secondary to body habitus. Good air movement. No accessory muscle usage. ABDOMEN: Soft, protuberant, portal sites are covered with Steri-Strips with no significant erythema, discharge, warmth. nondistended, nontender, no rebound, no guarding, no peritoneal signs, no masses or organomegaly. No CVAT. EXTREMITIES: 2/2 pulses, strength 5/5, no deformities, no clubbing, no cyanosis or edema. NEUROLOGICAL: no focal neuro deficits. GCS 15. SKIN: Warm and dry, no erythema. no rash. Good capillary refill. Source: Patient, Old records Exam Limitations: No limitations - Personal History Current Tetanus/Diphtheria Vaccine: Yes - Medical/Surgical History Hx Asthma: No Hx Chronic Respiratory Disease: No Hx Diabetes: No Hx Cardiac Disease: No Hx Renal Disease: No Hx Cirrhosis: No Hx Alcoholism: No Hx HIV/AIDS: No Hx Splenectomy or Spleen Trauma: No Other PMH: HTN, Lap-dennys 02/23/19 - Social History Smoking Status: Never smoked Constitutional: Initial Vital Signs Temperature (C) 37.1 C 02/24/19 11:47 Heart Rate 78 02/24/19 11:47 Respiratory Rate 18 02/24/19 11:47 Blood Pressure 149/83 H 02/24/19 11:47 O2 Sat (%) 94 02/24/19 11:47 O2 Delivery Mode Room Air Allergies/Adverse Reactions: No Known Allergies Allergy (Verified 02/24/19 11:51) Home Medications: Medication Instructions Recorded Atorvastatin Calcium [Lipitor 20 20 mg PO DAILY 02/22/19 mg (*)] Lisinopril/Hctz 20/12.5MG 1 ea PO DAILY 02/22/19 [Zestoretic/Prinzide 20/12.5MG (*)] Propranolol HCl [Inderal 20mg (*)] 20 mg PO DAILY 02/22/19 Acetaminophen [Tylenol 325mg (*)] 650 mg PO Q4HRS PRN tab 02/23/19 Amoxicillin/Clavulanate Pot 875 mg PO BID #10 tab 02/23/19 [Augmentin 875 MG TAB (*)] Medical Decision Making - Diagnostics Imaging Results: Imaging Impressions Chest X-Ray 02/24/19 12:01 Impression: Possible early retrocardiac infiltrate. Results discussed with Jazzmine Nicole at 12:38 PM ED Course/Re-evaluation: Vital signs reviewed and stable upon arrival. No fever and did not take antipyretics prior to arrival. O2 sats 91-94% on room air. IV access, laboratory studies, blood cultures, urinalysis, chest x-ray, respiratory pathogen panel ordered 1240: By radiologist, Dr. Jacinto, chest x-ray shows early signs of bilateral retrocardiac pneumonia. IV Rocephin and Zithromax ordered 1250: Labs reviewed. No leukocytosis, anemia, platelet dysfunction. Sodium 134, potassium 3.4, creatinine 0.8. LFTs are mildly elevated but decreased values from 2 days ago. Urinalysis is unremarkable. Start IV fluids normal saline and p.o. Tylenol 1000 mg given ED decision to consult hospitalist for admission for pneumonia likely nosocomial in nature. No signs of sepsis. O2 sats 91-94% on room air. Spoke with Velia who kindly agrees to admit patient under the care of Dr. Pinon. I did add a BNP level due to chart review and elevated BNP level at discharge. This patient was seen under the supervision of my secondary supervising physician. I evaluated care for this patient with attending. Differential Diagnosis: Adult fever including but not limited to viral syndromes including influenza, urinary tract infection, pneumonia and sepsis. - Data Points Laboratory Results: Laboratory Results 02/24/19 12:08 02/24/19 12:08 02/24/19 02/24/19 02/24/19 12:08 12:08 12:08 WBC 7.98 10^3/uL 10^3/uL (3.80-9.50) RBC 4.34 10^6/uL L 10^6/uL (4.40-6.38) Hgb 13.2 g/dL L g/dL (13.7-17.5) Hct 36.2 % L % (40.0-51.0) MCV 83.4 fL fL (81.5-99.8) MCH 30.4 pg pg (27.9-34.1) MCHC 36.5 g/dL g/dL (32.4-36.7) RDW 13.2 % % (11.5-15.2) Plt Count 204 10^3/uL 10^3/uL (150-400) MPV 8.8 fL fL (8.7-11.7) Neut % (Auto) 78.9 % H % (39.3-74.2) Lymph % (Auto) 7.4 % L % (15.0-45.0) [place] % (Auto) 11.7 % % (4.5-13.0) Eos % (Auto) 0.6 % % (0.6-7.6) Baso % (Auto) 0.6 % % (0.3-1.7) Nucleat RBC Rel Count 0.0 % % (0.0-0.2) Absolute Neuts (auto) 6.30 10^3/uL 10^3/uL (1.70-6.50) Absolute Lymphs (auto) 0.59 10^3/uL L 10^3/uL (1.00-3.00) Absolute Monos (auto) 0.93 10^3/uL H 10^3/uL (0.30-0.80) Absolute Eos (auto) 0.05 10^3/uL 10^3/uL (0.03-0.40) Absolute Basos (auto) 0.05 10^3/uL 10^3/uL (0.02-0.10) Absolute Nucleated RBC 0.00 10^3/uL 10^3/uL (0-0.01) Immature Gran % 0.8 % % (0.0-1.1) Immature Gran # 0.06 10^3/uL 10^3/uL (0.00-0.10) RBC/WBC/PLT Morphology TNP Platelet Estimate TNP Sodium Potassium Chloride Carbon Dioxide Anion Gap BUN Creatinine Estimated GFR Glucose Calcium Total Bilirubin Conjugated Bilirubin Unconjugated Bilirubin AST ALT Alkaline Phosphatase NT-Pro-B Natriuret Pep 1980 pg/mL H pg/mL (0-125) Total Protein Albumin Lipase Procalcitonin 0.30 ng/mL H ng/mL (0.02-0.10) 02/24/19 12:08 WBC RBC Hgb Hct MCV MCH MCHC RDW Plt Count MPV Neut % (Auto) Lymph % (Auto) [place] % (Auto) Eos % (Auto) Baso % (Auto) Nucleat RBC Rel Count Absolute Neuts (auto) Absolute Lymphs (auto) Absolute Monos (auto) Absolute Eos (auto) Absolute Basos (auto) Absolute Nucleated RBC Immature Gran % Immature Gran # RBC/WBC/PLT Morphology Platelet Estimate Sodium 134 mEq/L L mEq/L (135-145) Potassium 3.4 mEq/L L mEq/L (3.5-5.2) Chloride 108 mEq/L mEq/L (97-110) Carbon Dioxide 19 mEq/l L mEq/l (22-31) Anion Gap 7 mEq/L mEq/L (6-14) BUN 18 mg/dL mg/dL (7-23) Creatinine 0.8 mg/dL mg/dL (0.7-1.3) Estimated GFR > 60 Glucose 94 mg/dL mg/dL (70-100) Calcium 8.3 mg/dL L mg/dL (8.5-10.4) Total Bilirubin 2.6 mg/dL H mg/dL (0.1-1.4) Conjugated Bilirubin 2.0 mg/dL H mg/dL (0.0-0.5) Unconjugated Bilirubin 0.6 mg/dL mg/dL (0.0-1.1) AST 141 IU/L H IU/L (17-59) ALT 180 IU/L H IU/L (21-72) Alkaline Phosphatase 351 IU/L H IU/L (38-126) NT-Pro-B Natriuret Pep Total Protein 5.4 g/dL L g/dL (6.3-8.2) Albumin 2.9 g/dL L g/dL (3.5-5.0) Lipase 72 IU/L IU/L (23-300) Procalcitonin Medications Given: Discontinued Medications Azithromycin 500 mg/ Dextrose 255 mls @ 255 mls/hr IV EDNOW ONE PRN Reason: Protocol Stop: 02/24/19 13:40 Last Admin: 02/24/19 13:44 Dose: 255 mls Ceftriaxone Sodium/Dextrose (Rocephin 1 Gm (Premix)) 50 mls @ 100 mls/hr IV EDNOW ONE PRN Reason: Protocol Stop: 02/24/19 13:10 Last Admin: 02/24/19 12:57 Dose: 50 mls Departure - Departure Disposition: [facility] Acute Clinical Impression: Nosocomial pneumonia, History of laparoscopic cholecystectomy, Elevated liver function tests Condition: Fair
[2019-02-24 12:23] LABS: PLATELET COUNT 204 10^3/uL (150-400)
[2019-02-24] MEDS ORDERED: AZITHROMYCIN IV 500 MG in D5W 250 ML IV ONE (12:41)
[2019-02-24] MEDS ORDERED: HYDROmorphONE/DILAUDID 1 MG/ML INJ IVP PRN (13:32)
[2019-02-24] MEDS ORDERED: HYDROCODONE/APAP 5/325 TAB PO PRN (13:32)
[2019-02-24] MEDS ORDERED: ONDANSETRON 4 MG/2 ML VIAL IVP PRN (13:32)
[2019-02-24] MEDS ORDERED: ONDANSETRON DISINTEGRATING 4 MG TAB PO PRN (13:32)
[2019-02-24] MEDS ORDERED: ALBUTEROL 3 ML DEYVIAL IH PRN (15:12)
--- NOTE | 2019-02-24 15:21 | PDGENHP ---
History and Physical - Chief Complaint fever - History of Present Illness 63 yo male patient presents with a temperature orally of 102 F. Patient was discharged from the hospital yesterday afternoon and started taking Augmentin yesterday evening and another dose this morning. Patient reports that after surgery he had a sore throat and then yesterday developed nonproductive cough and runny nose with nasal congestion. He thought maybe he just developed a cold while in the hospital. Has not received influenza vaccine. The patient denies any burning with urination but does have some mild low back pain and urine is dark in color. Patient has a history of laparoscopic cholecystectomy status post acute cholecystitis noted to be gangrenous, performed on February 22, [address] Costa. Upon discharge he was noted to have elevated liver function tests but no choledocholithiasis on MRCP. He denies any orthopnea, paroxysmal nocturnal dyspnea, lower extremity edema. Patient denies any actual abdominal pain, nausea, vomiting. He is having bowel movements. CXR reveals possibly retrocardiac infiltrate He does not have Leukocytosis He has not had a fever while in the ER He is on RA PMHx: HTN PSHx: lap dennys soc: non smoker FmHx: non contributory History Information - Allergies/Home Medication List Allergies/Adverse Reactions: No Known Allergies Allergy (Verified 02/24/19 11:51) Home Medications: Atorvastatin Calcium [Lipitor 20 mg (*)] 20 mg PO DAILY 02/22/19 [Last Taken ] Lisinopril/Hctz 20/12.5MG [Zestoretic/Prinzide 20/12.5MG (*)] 1 ea PO DAILY [Last Taken 02/24/19] Propranolol HCl [Inderal 20mg (*)] 20 mg PO DAILY 02/22/19 [Last Taken 02/24/19] I have personally reviewed and updated: medical history, social history - Past Medical History hypertension - Surgical History Additional surgical history: Knee surgery - Family History Positive for: diabetes type II Additional family history: MS - Social History Smoking Status: Never smoked Review of Systems Review of Systems: ROS: 10pt was reviewed & negative except for what was stated in HPI & below Physical Exam Physical Exam: Temp Pulse Resp BP Pulse Ox 37.1 C 73 22 H 139/81 H 93 02/24/19 11:47 02/24/19 13:30 02/24/19 13:30 02/24/19 13:30 02/24/19 13:30 Constitutional: no apparent distress Eyes: PERRL, EOMI Ears, Nose, Mouth, Throat: moist mucous membranes, hearing normal Cardiovascular: regular rate and rhythym, No edema Respiratory: no respiratory distress, rhonchi Gastrointestinal: normoactive bowel sounds, soft, non-tender abdomen, other ( incisions: c/d/i no induration not ttp) Skin: warm Musculoskeletal: full muscle strength Neurologic: AAOx3 Psychiatric: interacting appropriately, not anxious, not encephalopathic Lymph, Heme, Immunologic: No petechiae Lab Data & Imaging Review 02/24/19 12:08 02/24/19 12:08 WBC 7.98 10^3/uL (3.80-9.50) 02/24/19 12:08 RBC 4.34 10^6/uL (4.40-6.38) L 02/24/19 12:08 Hgb 13.2 g/dL (13.7-17.5) L 02/24/19 12:08 Hct 36.2 % (40.0-51.0) L 02/24/19 12:08 MCV 83.4 fL (81.5-99.8) 02/24/19 12:08 MCH 30.4 pg (27.9-34.1) 02/24/19 12:08 MCHC 36.5 g/dL (32.4-36.7) 02/24/19 12:08 RDW 13.2 % (11.5-15.2) 02/24/19 12:08 Plt Count 204 10^3/uL (150-400) 02/24/19 12:08 MPV 8.8 fL (8.7-11.7) 02/24/19 12:08 Neut % (Auto) 78.9 % (39.3-74.2) H 02/24/19 12:08 Lymph % (Auto) 7.4 % (15.0-45.0) L 02/24/19 12:08 Swisher % (Auto) 11.7 % (4.5-13.0) 02/24/19 12:08 Eos % (Auto) 0.6 % (0.6-7.6) 02/24/19 12:08 Baso % (Auto) 0.6 % (0.3-1.7) 02/24/19 12:08 Nucleat RBC Rel Count 0.0 % (0.0-0.2) 02/24/19 12:08 Absolute Neuts (auto) 6.30 10^3/uL (1.70-6.50) 02/24/19 12:08 Absolute Lymphs (auto) 0.59 10^3/uL (1.00-3.00) L 02/24/19 12:08 Absolute Monos (auto) 0.93 10^3/uL (0.30-0.80) H 02/24/19 12:08 Absolute Eos (auto) 0.05 10^3/uL (0.03-0.40) 02/24/19 12:08 Absolute Basos (auto) 0.05 10^3/uL (0.02-0.10) 02/24/19 12:08 Absolute Nucleated RBC 0.00 10^3/uL (0-0.01) 02/24/19 12:08 Immature Gran % 0.8 % (0.0-1.1) 02/24/19 12:08 Immature Gran # 0.06 10^3/uL (0.00-0.10) 02/24/19 12:08 RBC/WBC/PLT Morphology TNP 02/24/19 12:08 Platelet Estimate TNP 02/24/19 12:08 Sodium 134 mEq/L (135-145) L 02/24/19 12:08 Potassium 3.4 mEq/L (3.5-5.2) L 02/24/19 12:08 Chloride 108 mEq/L (97-110) 02/24/19 12:08 Carbon Dioxide 19 mEq/l (22-31) L 02/24/19 12:08 Anion Gap 7 mEq/L (6-14) 02/24/19 12:08 BUN 18 mg/dL (7-23) 02/24/19 12:08 Creatinine 0.8 mg/dL (0.7-1.3) 02/24/19 12:08 Estimated GFR > 60 02/24/19 12:08 Glucose 94 mg/dL (70-100) 02/24/19 12:08 Calcium 8.3 mg/dL (8.5-10.4) L 02/24/19 12:08 Total Bilirubin 2.6 mg/dL (0.1-1.4) H 02/24/19 12:08 Conjugated Bilirubin 2.0 mg/dL (0.0-0.5) H 02/24/19 12:08 Unconjugated Bilirubin 0.6 mg/dL (0.0-1.1) 02/24/19 12:08 AST 141 IU/L (17-59) H 02/24/19 12:08 ALT 180 IU/L (21-72) H 02/24/19 12:08 Alkaline Phosphatase 351 IU/L (38-126) H 02/24/19 12:08 NT-Pro-B Natriuret Pep 1980 pg/mL (0-125) H 02/24/19 12:08 Total Protein 5.4 g/dL (6.3-8.2) L 02/24/19 12:08 Albumin 2.9 g/dL (3.5-5.0) L 02/24/19 12:08 Lipase 72 IU/L (23-300) 02/24/19 12:08 Procalcitonin 0.30 ng/mL (0.02-0.10) H 02/24/19 12:08 Assessment & Plan Assessment: #Possible Nosocomial Pneumonia #Fever #recent Lap Dennys, gangrenous #transaminitis #HLD Plan: overall he looks pretty stable. Will cont Rocephin and Azithromycin which were started in the ER. He does not have any Leukocytosis and PC is only mildly elevated. Will monitor. Start inhalers. Await viral resp pcr. For now now IVF. BNP is slightly elevated but I don't see any significant edema most recent echo was done 02/22 is c/w preserved lvef and no significant valvular disease Urine is dark, unclear etiology. Mucus membranes are moist, Cr is ok, BUN is ok. Possibly from recent lap dennys. Will monitor. obtain uric acid to help in evaluation of hydration status Hold Statin, recheck LFT's in a.m. SCD's full code
[2019-02-24] MEDS ORDERED: ACETAMINOPHEN 500 MG TAB PO ONE (15:36)
[2019-02-24] MEDS ORDERED: NS 1,000 ML IV ONE (15:36)
[2019-02-24] MEDS: ACETAMINOPHEN 325 MG TAB PO PRN (15:40)
[2019-02-24] MEDS: ALBUTEROL 3 ML DEYVIAL IH SCH ×2 (16:46→22:09)
[2019-02-24] MEDS: OSELTAMIVIR PHOSPHATE 75 MG CAP PO SCH (22:05)
[2019-02-25] MEDS: ALBUTEROL 3 ML DEYVIAL IH SCH ×2 (05:15→11:26)
[2019-02-25] MEDS: ACETAMINOPHEN 325 MG TAB PO PRN (05:24)
[2019-02-25 05:28] LABS: PLATELET COUNT 188 10^3/uL (150-400)
[2019-02-25 05:38] LABS: INR 1.09 (0.83-1.16); PROTIME(PATIENT) 13.7 SEC (12.0-15.0)
[2019-02-25 08:28] VITALS: BP 107/66
[2019-02-25] MEDS ORDERED: LISINOPRIL/HCTZ 20/12.5MG 1 EA TAB PO SCH (09:00)
[2019-02-25] MEDS ORDERED: ENOXAPARIN 40 MG/0.4 ML SYR SC SCH (09:00)
[2019-02-25] MEDS ORDERED: PROPRANOLOL HCL 20 MG TAB PO SCH (09:00)
[2019-02-25] MEDS ORDERED: AZITHROMYCIN 250 MG TAB PO SCH (09:00)
[2019-02-25] MEDS ORDERED: ATORVASTATIN CALCIUM 20 MG TAB PO SCH (09:00)
[2019-02-25] MEDS: OSELTAMIVIR PHOSPHATE 75 MG CAP PO SCH (09:54)
--- NOTE | 2019-02-25 10:18 | ASMTCMCOM ---
CM Note CM Note Notes: Reviewed chart, pt lives at home with his . Admitted for post op fever, pneumonia. Anticipate he will dc home with support of when medically stable. CM available for any changes. DC Plan: Independent Date Signed: 02/25/2019 10:05 AM Electronically Signed By:Christina Harding RN
[2019-02-25] MEDS ORDERED: predniSONE 20 MG TAB PO SCH (12:30)
--- NOTE | 2019-02-26 14:17 | PDDCSUM ---
Discharge Summary Discharge Summary: The pt is a 63 yo male admitted with fever and possible pneumonia. He was found to have Influenza and started on Tamiflu. He was also started on Prednisone burst. He is back to baseline and will d/c. Please see below DDX: #Influenza A: Tamiflu, Prednisone #Possible Nosocomial Pneumonia, cont abx. Azithromycin added #Fever #recent Lap Cindi, gangrenous, no e/o surgical site infection #transaminitis #HLD Exam: NAD AAOX3 RRR DECREASED LUNG SOUNDS, NORMAL WORK OF BREATHING S/NT/ND MEDS: SEE MED REC TOTAL TIME SPENT ON D/C IS 35 MINS
== END 2019-02-25 13:25 | disposition home or self-care (01) ==
LOC: INTOOBSV 13:05 → F3E 16:18
PROVIDERS: ADMIT Family Medicine; ATTEND Family Medicine
DX: J10.1 Influenza due to other identified influenza virus with other respiratory manifestations (principal); R94.5 Abnormal results of liver function studies; E78.5 Hyperlipidemia, unspecified; I10 Essential (primary) hypertension; Z98.890 Other specified postprocedural states
CPT/HCPCS: 71045; 71046; 96361; 96365; 96367; 96372; 96376; 99285; G0378; J0456; J0696; J1650; J7512; J7613